=== PATIENT | male | born 1975 | race American Indian/Alaskan Native ===

== ENCOUNTER 2018-09-16 13:40 | Emergency (ER) | payer SELFPAY ==
[2018-09-16 14:08] VITALS: BP 157/106
[2018-09-16] MEDS ORDERED: TORADOL IM ONE (14:24)
--- NOTE | 2018-09-16 15:17 | XRay Report ---
FINAL REPORT EXAM: XR SHOULDER 2+V LT HISTORY: pain TECHNIQUE: Three views left shoulder. PRIORS: None currently available. FINDINGS: There is no acute fracture. There is no evidence for healing fracture. There is no acute dislocation. Joints in anatomical position. No significant arthrosis. There is no cortical destruction to suggest osteomyelitis. There are no suspicious osseous lesions. There are no radiopaque foreign objects. IMPRESSION: No acute osseous findings.
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
== END 2018-09-16 15:30 | disposition home or self-care (01) ==
LOC: ED 13:40
DX: M25.512 Pain in left shoulder (principal); F17.200 Nicotine dependence, unspecified, uncomplicated
CPT/HCPCS: 73030; 96372; 99283; J1885

== ENCOUNTER 2018-12-02 15:41 | Emergency (ER) | payer OTHER ==
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
[2018-12-02] MEDS ORDERED: PERCOCET 5/325 PO STA (17:08)
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
--- NOTE | 2018-12-02 20:37 | Cat Scan Report ---
PROCEDURE: CT facial bones without contrast. TECHNIQUE: Computerized tomography of the facial bones and soft tissues with axial and coronal secti ons performed from the cranial aspect of the frontal sinuses to the caudal portion of the mandible wi thout contrast material. Automated exposure control, adjustment of mA and/or kV according to patient size, or iterative reconstruction dose optimization techniques were utilized. CT DOSE LENGTH PRODUCT: 604.20 mGycm HISTORY: Left jaw pain. COMPARISONS: None. FINDINGS: The facial bones appear intact. There are no fractures or other osseous abnormalities. The orbital co ntents appear normal. The mastoid air cells and paranasal sinuses are well aerated. The facial soft t issues are unremarkable. There are no obvious signs of an inflammatory process. IMPRESSION: Normal study. This document is electronically signed by Perry Mccauley MD., December 02 2018 08:35:52 PM ET
[2018-12-02 21:04] VITALS: BP 173/103
== END 2018-12-02 21:15 | disposition home or self-care (01) ==
LOC: ED 15:41
DX: S00.83XA Contusion of other part of head, initial encounter (principal); F17.200 Nicotine dependence, unspecified, uncomplicated; W10.8XXA Fall (on) (from) other stairs and steps, initial encounter; Y93.89 Activity, other specified; Y92.89 Other specified places as the place of occurrence of the external cause; Y99.8 Other external cause status
CPT/HCPCS: 70486